=== PATIENT | female | born 1955 | race Caucasian/White ===

== ENCOUNTER → 2016-09-07 | Day surgery (SDC) | payer OTHER ==
[~2016-09-07] MED LIST: ATOR10TA15 PO; BUPIVACAINE/EPINEPHRINE 0.25% PF 30 ML VIAL ONE; CEFA2SOL IV; CYCL1TAB29 PO; DOCU1CAP39 PO; EPIN1INJ21 IV PUSH; EPIN1INJ21 SQ; KETOROLAC TROMETHAMINE 30 MG/ML (IVP) VIAL IV PUSH ONE; LACTATED RINGER'S 1000 ML INJ 1,000 ML ONE; LEVO100T5 PO; MEPERIDINE HCL 25 MG/ML VIAL ONE; METO50TA PO; MIDAZOLAM HCL 2 MG/2 ML VIAL ONE; ONDANSETRON HCL 4 MG/2 ML VIAL IV PUSH ONE; OXYC-395 PO; PROPOFOL 200 MG/20 ML AMP IV ONE; SOLU250I IV PUSH; TRAZ100T4 PO; TRAZ300T2 PO; TRAZ50TA12 PO; ceFAZolin 2 GM PREMIX 50 ML ONE
--- NOTE | 2016-09-09 21:41 | MP ---
cc: AMOR LANGSTON M.D. DATE OF SURGERY 09/07/16 PREOPERATIVE DIAGNOSIS Left elbow painful retained internal fixation and chronic posterior elbow bursitis PROCEDURE Left elbow posterior exploration with bursectomy and medial arthrotomy for hardware removal and lateral fascial incision for hardware removal. ANESTHESIA General SURGEON Noelle Langston MD, [employer] Staff ESTIMATED BLOOD LOSS 50-100 mL DRAINS None. SPECIMEN Metallic fragments, discarded. COMPLICATIONS None known. INDICATION Gay Hare is a 61-year-old female with persistent left elbow pain secondary to retained internal fixation. She also has flexion contracture of the elbow and post-traumatic arthritis of the elbow. The surgical plan is to proceed with hardware removal today. Of note, she had significant ulnar nerve problems following her surgery many years ago and some of the hardware is very close to the ulnar nerve, so complete dissection around the ulnar side of the elbow to dissect out the ulnar nerve will need to be performed. She understands that and risk of ulnar neuropathy post surgery discussed and ulnar symptomatology discussed. A detailed informed consent was obtained. She also understands that the piece of metal broken on the inside of the elbow would be left alone. PROCEDURE IN DETAIL The patient was brought to the operating room. She was placed under general anesthetic. The left upper extremity is prepped and draped in usual sterile fashion. IV antibiotics were given. Time-out was completed. We put a bump on the front of her chest and then we brought the arm across the chest and then proceeded with direct posterior approach. There was enlarged bursal tissue and we proceeded with excision of the bursal tissue and then identified the underlying hardware about the olecranon region. Then we dissected and made a flap all the way laterally until we could palpate the lateral based hardware and we also had used fluoroscopy to help guide us. Then we made a fascial incision, identified the hardware, removed this screw and this washer. Then we made a very large flap along the ulnar side and dissected down to the fascial layer and then dissected down and found the ulnar nerve proximally and then carefully dissected all the way down to the cubital tunnel. There was significant amount of scar tissue around the nerve. Once we had the nerve mobilized, then we could look on either side of the nerve for the hardware. Ultimately, it was going down to the epicondyle and then coming underneath the fascial tissue protecting the nerve and then proceeded to identify the three screws in this location and two washers. The two screws were removed fairly easily. The other screw was right up against the joint line and we were in the joint and the bone was overgrown in this area. We identified the screw by fluoroscopy and then removed the bony overgrowth and then were able to get access to the screw head and then removed this fragment of screw, but the other screw portion which was broken and directly in the middle of bone was left in place. We then irrigated out with copious amounts of irrigation. We had very good hemostasis. We had decompressed the ulnar nerve. We now saved some fascial tissue to repair this so that it was stable and it had no evidence of subluxating out of place. We had already completed the bursectomy. We now removed the hardware about the olecranon without difficulty and then took our final x-rays of the elbow demonstrating that all the hardware had been removed except for the one portion of the broken screw which was within the bone of the distal humerus. We irrigated out with copious amounts of irrigation. We had very good hemostasis. Procedure closed with absorbable suture then nylon on the skin. Xeroform applied. Sterile dressing applied. Sling applied. The patient was awoken and returned to the recovery room in stable condition. MD ISAAC Prescott/ /11:28 AM /9:26 PM
== END | disposition home or self-care (01) ==
LOC: ESDC 06:18
PROVIDERS: ATTEND Orthopaedic Surgery Sports Medicine
DX: T84.84XA Pain due to internal orthopedic prosthetic devices, implants and grafts, initial encounter (principal); M70.22 Olecranon bursitis, left elbow; M19.122 Post-traumatic osteoarthritis, left elbow
CPT/HCPCS: 01710; 20680; 24105; 73070; 76000; J0690; J1885; J2175; J2250; J2405; J3010; J7120

== ENCOUNTER 2016-10-02 12:16 | Day surgery (SDC) | payer OTHER ==
[~2016-10-02 12:16] MED LIST changes: -BUPIVACAINE/EPINEPHRINE 0.25% PF 30 ML VIAL ONE; -CEFA2SOL IV; -DOCU1CAP39 PO; -EPIN1INJ21 IV PUSH; -EPIN1INJ21 SQ; -KETOROLAC TROMETHAMINE 30 MG/ML (IVP) VIAL IV PUSH ONE; -LACTATED RINGER'S 1000 ML INJ 1,000 ML ONE; -MEPERIDINE HCL 25 MG/ML VIAL ONE; -MIDAZOLAM HCL 2 MG/2 ML VIAL ONE; -ONDANSETRON HCL 4 MG/2 ML VIAL IV PUSH ONE; -PROPOFOL 200 MG/20 ML AMP IV ONE; -SOLU250I IV PUSH; -TRAZ300T2 PO; -TRAZ50TA12 PO; -ceFAZolin 2 GM PREMIX 50 ML ONE
[2016-10-02 12:44] VITALS: BP 151/53; PULSE 86; RESP 18; TEMP 98.1; O2SAT 94
--- NOTE | 2016-10-02 16:38 | RADRPT ---
EXAM DATE/TIME: 10/02/2016 00:00 [facility] COMPARISON : No previous studies available for comparison. 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 Lesion is unruptured . PAST MEDICAL HISTORY : 1. Hypertension. 2. Hypothyroidism. 3. Arthritis. 4. Aneurysm, intracranial. PAST SURGICAL HISTORY : 1. Cholecystectomy. 2. Multisystem Orthopedic Surgery; Polytrauma 3. Diaphram Rupture repair SOCIAL HISTORY : No alcohol use. Tobacco;former. ALLERGIES: 1. Bovine MEDICATIONS: 1. Atorvastatin 10 mg q.h.s. 2. Cyclobenzaprine 10 mg prn 3. Levothyroxine 100 mcg q.d. 4. Lopressor (Metoprolol) 50 mg q.d. 5. Oxycodone 10 mg prn 6. Trazodone 100 mg q.h.s. IMAGING STUDIES: 10 mm anterior communicating artery aneurysm, possibly amenable to coil treatment however better deli neation of the neck will be needed at the time of diagnostic arteriography stent-assisted coiling may be an option if a broad neck is discovered. ASSESSMENT: Treatment of this 10 mm potentially symptomatic aneurysm is certainly indicated and should be perform ed expeditiously. The risks, benefits and alternatives were discussed at some length with the patient . Risks discussed included stroke and . PLAN: Catheter arteriography with concomitant coil embolization of the anterior communicating artery cerebr al aneurysm if technically feasible Jaime Mclain MD on October 02, 2016 at 16:33 Board Certified Radiologist. This report was verified electronically.
== END 2016-10-02 13:45 | disposition home or self-care (01) ==
LOC: HROP 12:16 → HRIP 12:27 → HROP 13:45
PROVIDERS: ATTEND Neurological Surgery
DX: I67.1 Cerebral aneurysm, nonruptured (principal)
CPT/HCPCS: 99213; G0463

== ENCOUNTER 2016-10-05 10:23 | Observation (INO) | payer OTHER ==
[~2016-10-05] VITALS: Ht 167.6 cm; Wt 93.6 kg
[~2016-10-05 10:23] MED LIST changes: +ONDANSETRON HCL 4 MG/2 ML VIAL IV PUSH ONE; +PROPOFOL 200 MG/20 ML AMP IV ONE; +SODIUM CHLORID 0.9% 500 ML BAG IV ONE
[2016-10-05] MEDS ORDERED: TRAZ300T2 PO (10:45)
[2016-10-05 10:47] VITALS: BP 177/109; PULSE 46; RESP 20; TEMP 98; O2SAT 90
[2016-10-05 11:12] LABS: AUTOMATED NEUTROPHIL # 4.4 TH/MM3 (1.8-7.7); BASOPHIL # 0.1 TH/MM3 (0-0.2); BASOPHIL % 0.9 % (0.0-2.0); EOSINOPHIL # 0.3 TH/MM3 (0-0.4); HEMO FLAGS DIFF FINAL; LYMPH % 28.5 % (9.0-44.0); LYMPHOCYTE # 2.2 TH/MM3 (1.0-4.8); MEAN CELL VOLUME 91.3 FL (80.0-100.0); MEAN CORPUSCULAR HEMOGLOBIN 29.5 PG (27.0-34.0); MEAN CORPUSCULAR HGB CONC 32.3 % (32.0-36.0); MONO % 10.3 % (0.0-8.0); NEUT % 56.3 % (16.0-70.0); PLATELET COUNT 164 TH/MM3 (150-450); RED BLOOD COUNT 4.38 MIL/MM3 (4.00-5.30); WHITE BLOOD COUNT 7.8 TH/MM3 (4.0-11.0)
[2016-10-05] MEDS ORDERED: SODIUM CHLORID 0.9% 500 ML IV PRN (11:15)
[2016-10-05] MEDS ORDERED: LACTATED RINGER'S 1000 ML IV PRN (11:15)
[2016-10-05] MEDS ORDERED: METOPROLOL TARTRATE 25 MG TAB PO PRN (11:15)
[2016-10-05] MEDS ORDERED: INSULIN HUMAN REGULAR 1,000 UNITS/10 ML VIAL SQ PRN (11:15)
[2016-10-05 11:16] LABS: APTT (PATIENT) 28.3 SEC (24.3-30.1); PROTHROMBIN TIME - PATIENT 10.8 SEC (9.8-11.6)
[2016-10-05 11:29] LABS: BICARBONATE 28.8 MEQ/L (21.0-32.0); POTASSIUM 4.5 MEQ/L (3.5-5.1)
[2016-10-05] MEDS ORDERED: NALOXONE HCL 0.4 MG/ML AMP IV PRN (12:00)
[2016-10-05] MEDS ORDERED: MAGNESIUM HYDROXIDE SUSP 30 ML CUP PO PRN (12:00)
[2016-10-05] MEDS ORDERED: ASPIRIN 325 MG TAB PO ONE (12:00)
[2016-10-05] MEDS ORDERED: CLOPIDOGREL 300 MG TAB PO ONE (12:00)
[2016-10-05] MEDS ORDERED: SODIUM CHLORIDE 0.9% FLUSH 10 ML FLUSH IV FLUSH PRN (12:00)
[2016-10-05] MEDS ORDERED: ONDANSETRON HCL 4 MG/2 ML VIAL IVP PRN (12:00)
[2016-10-05] MEDS ORDERED: RESP: ALBUTEROL 2.5 MG/3 ML NEB (SCH) ONE (14:42)
[2016-10-05] MEDS ORDERED: VERAPAMIL HCL 5 MG/2 ML VIAL ONE (14:53)
[2016-10-05] MEDS ORDERED: RESP: ALBUTEROL 2.5 MG/3 ML NEB (SCH) INH ONE (15:00)
[2016-10-05] MEDS ORDERED: ceFAZolin 2 GM PREMIX 50 ML ONE (15:33)
[2016-10-05] MEDS ORDERED: SUGAMMADEX SODIUM 200 MG/2 ML VIAL IV PUSH ONE ×4 (16:12→16:13)
--- NOTE | 2016-10-05 16:25 | EKG ---
Date Performed: 10/05/2016 Time Performed: 11:13:55 PTAGE: 61 years EKG: Sinus rhythm NORMAL ECG NO PREVIOUS TRACING DOCTOR: Shon Saldivar Interpretating Date/Time 10/05/2016 16:24:28
[2016-10-05] MEDS ORDERED: IODIXANOL 320 MG/ML 50 ML VIAL (for RAD SPEC) I-ARTERIAL ONE (17:06)
[2016-10-05] MEDS ORDERED: fentaNYL CITRATE 250 MCG/5 ML AMP ONE (17:32)
[2016-10-05] MEDS ORDERED: MIDAZOLAM HCL 2 MG/2 ML VIAL ONE (17:32)
[2016-10-05] MEDS ORDERED: ACETAMINOPHEN 325 MG TAB PO PRN (18:00)
[2016-10-05] MEDS ORDERED: *morphine SULFATE 8 MG/ML PERIprocedure ONLY ONE (18:08)
[2016-10-05] MEDS ORDERED: ENALAPRILAT 1.25 MG/ML VIAL IV PUSH PRN (18:30)
[2016-10-05] MEDS ORDERED: cloNIDine HCL 0.1 MG TAB PO PRN (18:30)
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
[2016-10-05 20:00] VITALS: BP 114/72; PULSE 82; RESP 18; TEMP 97.5; O2SAT 99
[2016-10-05] MEDS ORDERED: ATORVASTATIN 10 MG TAB PO SCH (21:00)
[2016-10-05] MEDS ORDERED: traZODone HCL 100 MG TAB PO SCH (21:00)
[2016-10-05] MEDS: oxyCODONE/ACETAMINOPHEN 5 MG/325 MG TAB PO PRN (21:21)
[2016-10-05] MEDS: SODIUM CHLOR 0.9% 1000 ML INJ 1,000 ML IV SCH ×2 (21:25→21:34)
[2016-10-05] MEDS: SODIUM CHLORIDE 0.9% FLUSH 10 ML FLUSH IV FLUSH SCH (21:34)
[2016-10-06] VITALS: BP 102/54; PULSE 69; RESP 18; TEMP 97.7; O2SAT 96
[2016-10-06] MEDS: oxyCODONE/ACETAMINOPHEN 5 MG/325 MG TAB PO PRN ×3 (03:23→13:17)
[2016-10-06 04:00] VITALS: BP 112/66; PULSE 87; RESP 16; TEMP 98.7; O2SAT 93
[2016-10-06] MEDS ORDERED: LEVOTHYROXINE SODIUM 100 MCG TAB PO SCH (06:00)
[2016-10-06 08:24] VITALS: BP 156/77; PULSE 99; RESP 18; TEMP 100.1; O2SAT 92
[2016-10-06] MEDS: SODIUM CHLORIDE 0.9% FLUSH 10 ML FLUSH IV FLUSH SCH (08:38)
[2016-10-06] MEDS: CYCLOBENZAPRINE HCL 10 MG TAB PO SCH ×2 (08:38→13:15)
[2016-10-06 08:48] LABS: AUTOMATED NEUTROPHIL # 3.9 TH/MM3 (1.8-7.7); BASOPHIL % 0.4 % (0.0-2.0); EOSINOPHIL # 0.1 TH/MM3 (0-0.4); EOSINOPHIL % 1.8 % (0.0-4.0); HEMATOCRIT 40.7 % (35.0-46.0); HEMO FLAGS DIFF FINAL; LYMPH % 8.1 % (9.0-44.0); LYMPHOCYTE # 0.4 TH/MM3 (1.0-4.8); MEAN CELL VOLUME 91.8 FL (80.0-100.0); MEAN CORPUSCULAR HEMOGLOBIN 29.6 PG (27.0-34.0); MEAN CORPUSCULAR HGB CONC 32.3 % (32.0-36.0); MONO % 5.4 % (0.0-8.0); NEUT % 84.3 % (16.0-70.0); PLATELET COUNT 103 TH/MM3 (150-450); RED BLOOD COUNT 4.43 MIL/MM3 (4.00-5.30); RED CELL DISTRIBUTION WIDTH 14.7 % (11.6-17.2); WHITE BLOOD COUNT 4.6 TH/MM3 (4.0-11.0)
[2016-10-06] MEDS ORDERED: METOPROLOL TARTRATE 50 MG TAB PO SCH (09:00)
[2016-10-06 09:08] LABS: BICARBONATE 29.4 MEQ/L (21.0-32.0); POTASSIUM 3.9 MEQ/L (3.5-5.1)
[2016-10-06 12:30] VITALS: BP 142/82; PULSE 84; RESP 18; TEMP 100; O2SAT 92
--- NOTE | 2016-10-06 14:08 | HHI.PR ---
Subjective Remarks Pt has her chronic headaches but no other complaints. states that she was referred to Dr. Lock in [place] by Dr. Barr. would like to be put back on her regular pain meds. no nausea or vomiting. Objective Vitals Vital Signs Date Time Temp Pulse Resp B/P Pulse Ox O2 Delivery O2 Flow Rate FiO2 10/06/16 12:30 100.0 84 18 142/82 92 10/06/16 09:39 18 10/06/16 08:24 100.1 99 18 156/77 92 10/06/16 04:00 98.7 87 16 112/66 93 10/06/16 00:00 97.7 69 18 102/54 96 10/05/16 20:00 97.5 82 18 114/72 99 10/05/16 18:40 80 18 151/81 97 Nasal Cannula 2 10/05/16 18:30 79 18 147/74 97 Nasal Cannula 2 10/05/16 18:15 79 18 151/84 99 Nasal Cannula 2 10/05/16 18:00 81 18 161/94 100 Nasal Cannula 2 10/05/16 17:45 80 18 129/84 99 Nasal Cannula 2 10/05/16 17:30 80 18 127/79 100 Nasal Cannula 2 10/05/16 17:23 97.5 81 18 123/75 100 Simple Mask 10 I/O 10/05/16 10/05/16 10/05/16 10/06/16 10/06/16 10/06/16 07:00 15:00 23:00 07:00 15:00 23:00 Intake Total 1200 ml Output Total 950 ml Balance 250 ml Intake IV Total 200 ml Other 1000 ml Output Urine Total 900 ml Estimated Blood Loss 50 ml # Voids 2 1 Result Diagram: 10/06/16 0745 10/06/16 0743 Objective Remarks GENERAL: This is a well-nourished, well-developed patient, in no apparent distress. Appears uncomfortable due to back pain SKIN: Dressing over the right groin, dry blood, no new blood , no hematoma palpated. CARDIOVASCULAR: Regular rate and rhythm without murmurs RESPIRATORY: Clear to auscultation. Breath sounds equal bilaterally. No wheezes GASTROINTESTINAL: Abdomen soft, non-tender, nondistended. No masses. No guarding. MUSCULOSKELETAL: Extremities without edema. moves extremities A/P Assessment and Plan Anterior communicating artery aneurysm: Patient was admitted for catheter arteriography with concomitant coiled embolization of the anterior communicating artery cerebral aneurysm. IR was not able to proceed w procedure. Apparently she also had some bleeding from the groin area for which she was observed overnight. Per pt she has been referred to another physician in [place]. Pt encouraged to use IS q1-2 hours while awake as w her chronic headaches may have atelectasis. Other than her headaches she is asymptomatic. Hypertension: continue home medication hypothyroidism: continue home med Chronic back pain: continue home meds Discharge Planning d/c home today f/u w physician in [facility] per IR recs f/u w PCP for chronic medical problem activity ad nati heart healthy diet Sariah Beckwith MD October 06, 2016 14:08
--- NOTE | 2016-10-06 14:39 | RADRPT ---
EXAM DATE/TIME: 10/05/2016 15:47 [facility] COMPARISON: No previous studies available for comparison. INDICATIONS : Patient with a history of cerebral aneurysm. MEDICAL HISTORY : Hypothyroid HTN Arthritis GERD SURGICAL HISTORY : TIA Cholecystectomy ENCOUNTER: Initial ACUITY: 7-11 months PAIN SCORE: 0/10 FLUORO TIME: 9.2 minutes IMAGE SERIES: 14 ACCESS SITE: Right Femoral artery CONTRAST: 160 cc Visipaque (iodixanol) Prophylactic antibiotics were administered with appropriate pre-procedure timing. Intra-procedural antibiotics were given as prescribed above. DEVICE(S): 1.) Right common femoral artery 6F Angio-Seal 2.) Right common femoral artery Syvek Anesthesia and pain control was provided by the Anesthesia department. PROCEDURE : 1. Ultrasound-guided puncture of the access site. 2. Angiography of the access site prior to closure device. 3. Conscious sedation with continuous EKG and Oximetry monitoring. 4. Percutaneous closure of the access site. 5. Angiography of the left internal carotid artery 6. Angiography of the right internal carotid artery The risks, benefits and alternatives to the procedure were explained and verbal and written consent w as obtained. The site was prepped in sterile fashion. Full sterile technique was used, including ca p, mask, sterile gloves and gown and a large sterile sheet. Hand hygiene and 2% chlorhexidine and/or betadine/alcohol prep was utilized per protocol for cutaneous antisepsis. The skin and subcutaneous tissues were infiltrated with local anesthetic solution. With ultrasound and fluoroscopic guidance the selected artery was punctured and a vascular sheath was placed. Angiography of the common femoral artery was performed for evaluation prior to percutaneous closure device placement. A JB2 catheter was placed in the left internal carotid artery where AP oblique and rotating digital a ngiography was performed. The catheter was next placed in the right internal carotid artery were agai n AP oblique and rotating digital angiography was performed. Examination demonstrates an aneurysm of the anterior medicated and artery with both A2 segments arising from the base of the aneurysm. The pa tient would not be a candidate for routine coiling and stent assisted coiling or clipping should be c onsidered. The procedure was terminated at this point without performing coiling. Hemostasis was obtained with the prescribed medicated closure device. Conscious sedation was perform ed with the prescribed dosages and duration as above in the presence of an independent trained radiol ogy nurse to assist in the monitoring of the patient. EKG and oximetry remained stable throughout th e procedure. CONCLUSION: 1. 9 mm anterior communicating artery aneurysm as above. Coiled was not performed Vivek Barr MD on October 06, 2016 at 14:11 Board Certified Radiologist. This report was verified electronically.
== END 2016-10-06 15:04 | disposition home or self-care (01) ==
LOC: HRAD 10:23 → HRIP 10:24 → EDSTATUS 10:30 → HRAD 17:41 → N05A 17:42
PROVIDERS: ADMIT Neurological Surgery; ATTEND Neurological Surgery
DX: I67.1 Cerebral aneurysm, nonruptured (principal); I10 Essential (primary) hypertension; E03.9 Hypothyroidism, unspecified; G89.29 Other chronic pain; M54.9 Dorsalgia, unspecified; Z79.899 Other long term (current) drug therapy; K76.9 Liver disease, unspecified
CPT/HCPCS: 36224; 76937; 80048; 85025; 85610; 85730; 93005; 94150; C1769; C1887; C1894; G0378; J0690; J2250; J2270; J2405; J3010; J7030; J7040; Q9967; J7613

== ENCOUNTER 2016-10-16 11:03 | Inpatient (IN) | payer OTHER, MEDICARE ==
[~2016-10-16] VITALS: Ht 167.6 cm; Wt 90.0 kg
[~2016-10-16 11:03] MED LIST changes: -ONDANSETRON HCL 4 MG/2 ML VIAL IV PUSH ONE; -PROPOFOL 200 MG/20 ML AMP IV ONE; -SODIUM CHLORID 0.9% 500 ML BAG IV ONE; +TRAZ300T2 PO
[2016-10-16 11:05] VITALS: BP 110/79; PULSE 104; RESP 15; TEMP 98.2; O2SAT 98
--- NOTE | 2016-10-16 11:26 | PD ---
Physical Exam Time Seen by Provider: 11:22 Narrative 61 y/o female here for wound recheck. She had some surgical hardware in the L elbow removed by Dr. Langston on September 07. She has had an opening wound, pain in the left elbow over the past few days. She was seen at Dr. Langston's office and was referred here. Vital signs reviewed. Seen at triage desk. Awaiting bed placement. Data Data Last Documented VS Vital Signs Date Time Temp Pulse Resp B/P Pulse Ox O2 Delivery O2 Flow Rate FiO2 10/16/16 11:05 98.2 104 15 110/79 98 MDM Medical Record Reviewed: Yes Supervised Visit with LYDIA: No Felipe Canales Oct 16, 2016 11:26
--- NOTE | 2016-10-16 11:37 | PD ---
HPI Chief Complaint: Skin Problem Time Seen by Provider: 11:37 Travel History International Travel<30 days: No Contact w/Intl Traveler<30days: No Traveled to known affect area: No History of Present Illness HPI 61-year-old female with history of CAD, hypertension, unruptured cerebral aneurysm, presents to emergency department today for evaluation of a wound to her left elbow. On September 07, patient had instrumentation removed from her elbow by Dr. Langston. Per report, the patient states the wound did heal but she noticed it opening last week with increased pain and redness. She went and was evaluated by LETTY Michael with Dr. Langston who scheduled her for reevaluation today. When she went to be re-evaluated today, pain had worsened, drainage had increased, along with erythema. The patient has also been having chills. Alec sent her here for admission for IV antibiotics and further evaluation of the wound. Currently the patient states the pain is an 8 out of 10, exacerbated by movement. Packing is in place. She has no reports of alterations in sensation that are acute. Patient does have chronic ulnar nerve neuropathy from previous surgery. She denies chest pain or tightness. No difficulty breathing. She has no other symptoms to report. PFSH Past Medical History Cardiovascular Problems: Yes (ENLARGED AORTA) Hypertension: Yes Musculoskeletal: No Neurologic: Yes (frequent headaches, ) Respiratory: No Immunizations Current: Yes Thyroid Disease: Yes Past Surgical History Abdominal Surgery: Yes (COLON) Cholecystectomy: Yes Hysterectomy: Yes Social History Alcohol Use: No Tobacco Use: Yes (SOCIAL) Substance Use: No Allergies-Medications (Allergen,Severity, Reaction): Coded Allergies: Bee Sting (Verified Allergy, Severe, 10/16/16) Codeine (Verified Allergy, Intermediate, headaches, 10/16/16) Boniva (Verified Adverse Reaction, Severe, gi problems, 10/16/16) Reported Meds & Prescriptions Reported Meds & Active Scripts Active Reported Trazodone (Trazodone HCl) 50 Mg Tab 50 Mg PO HS Metoprolol Tartrate 50 Mg Tab 50 Mg PO DAILY Levothyroxine (Levothyroxine Sodium) 100 Mcg Tab 100 Mcg PO DAILY Atorvastatin (Atorvastatin Calcium) 10 Mg Tab 10 Mg PO HS Flexeril (Cyclobenzaprine HCl) 10 Mg Tab 10 Mg PO TID Oxycodone (Oxycodone HCl) 10 Mg Tab 10 Mg PO Q6HR Review of Systems Except as stated in HPI: all other systems reviewed are Neg Physical Exam Narrative GENERAL: Well-nourished female patient, in no acute distress SKIN: Focused skin assessment warm/dry. There is a wound on the posterior lateral aspect of the left elbow that is 4 cm in diameter with a yellow slough and purulent drainage. Packing is in place. Erythema extends approximately 3 cm from the edge of the wound. There is no crepitus with palpation. No fluctuation. HEAD: Atraumatic. Normocephalic. EYES: Pupils equal and round. No scleral icterus. No injection or drainage. Left eye is disc conjugated to the left ENT: No nasal bleeding or discharge. Mucous membranes pink and moist. NECK: Trachea midline. No JVD. CARDIOVASCULAR: Regular rate and rhythm. No murmur appreciated. RESPIRATORY: No accessory muscle use. Clear to auscultation. Breath sounds equal bilaterally. GASTROINTESTINAL: Abdomen soft, non-tender, nondistended. Hepatic and splenic margins not palpable. MUSCULOSKELETAL: No obvious deformities. No clubbing. No cyanosis. Wound is described above. Patient is most comfortable in a semiflexed position of the left elbow. Distal pulses are palpable. Cap refills within normal limits. NEUROLOGICAL: Awake and alert. No obvious cranial nerve deficits. Motor grossly within normal limits. Normal speech. PSYCHIATRIC: Appropriate mood and affect; insight and judgment normal. Data Data Last Documented VS Vital Signs Date Time Temp Pulse Resp B/P Pulse Ox O2 Delivery O2 Flow Rate FiO2 10/16/16 11:47 97 Room Air 10/16/16 11:42 98.1 103 109/71 10/16/16 11:05 15 Orders Electrocardiogram (10/16/16 11:42) Complete Blood Count With Diff (10/16/16 11:42) Comprehensive Metabolic Panel (10/16/16 11:42) Prothrombin Time / Inr (Pt) (10/16/16 11:42) Act Partial Throm Time (Ptt) (10/16/16 11:42) Urinalysis - C+S If Indicated (10/16/16 11:42) Blood Culture (10/16/16 11:42) Blood Glucose (10/16/16 11:42) Ecg Monitoring (10/16/16 11:42) Iv Access Insert/Monitor (10/16/16 11:42) Oximetry (10/16/16 11:42) Oxygen Administration (10/16/16 11:42) Elbow, Complete (4 Vws) (10/16/16 ) Westergren Sedimentation Rate (10/16/16 11:42) C-Reactive Protein (Crp) (10/16/16 11:42) Urine Culture (10/16/16 12:25) Morphine Inj (Morphine Inj) (10/16/16 13:30) Wound Culture And Gram Stain (10/16/16 13:37) Piperacil-Tazo 3.375 Gm Premix (Zosyn 3. (10/16/16 13:45) Ct Elbow W Iv Contrast (10/16/16 ) Admit Order (Ed Use Only) (10/16/16 14:14) Consult Orthopedic (10/16/16 ) Labs Laboratory Tests Test 10/16/16 10/16/16 10/16/16 12:00 12:18 12:25 White Blood Count 7.4 TH/MM3 Red Blood Count 4.25 MIL/MM3 Hemoglobin 12.6 GM/DL Hematocrit 38.4 % Mean Corpuscular Volume 90.4 FL Mean Corpuscular Hemoglobin 29.6 PG Mean Corpuscular Hemoglobin 32.8 % Concent Red Cell Distribution Width 14.6 % Platelet Count 177 TH/MM3 Mean Platelet Volume 7.9 FL Neutrophils (%) (Auto) 63.6 % Lymphocytes (%) (Auto) 25.8 % Monocytes (%) (Auto) 8.3 % Eosinophils (%) (Auto) 1.5 % Basophils (%) (Auto) 0.8 % Neutrophils # (Auto) 4.7 TH/MM3 Lymphocytes # (Auto) 1.9 TH/MM3 Monocytes # (Auto) 0.6 TH/MM3 Eosinophils # (Auto) 0.1 TH/MM3 Basophils # (Auto) 0.1 TH/MM3 CBC Comment DIFF FINAL Differential Comment Prothrombin Time 11.5 SEC Prothromb Time International 1.0 RATIO Ratio Activated Partial 28.7 SEC Thromboplast Time Sodium Level 139 MEQ/L Potassium Level 3.9 MEQ/L Chloride Level 107 MEQ/L Carbon Dioxide Level 24.6 MEQ/L Anion Gap 7 MEQ/L Blood Urea Nitrogen 15 MG/DL Creatinine 0.90 MG/DL Estimat Glomerular Filtration 63 ML/MIN Rate Random Glucose 112 MG/DL Calcium Level 9.2 MG/DL Total Bilirubin 0.9 MG/DL Aspartate Amino Transf 18 U/L (AST/SGOT) Alanine Aminotransferase 22 U/L (ALT/SGPT) Alkaline Phosphatase 114 U/L C-Reactive Protein 0.88 MG/DL Total Protein 7.5 GM/DL Albumin 3.6 GM/DL Erythrocyte Sedimentation Rate 33 mm/hr Urine Color YELLOW Urine Turbidity CLEAR Urine pH 5.0 Urine Specific [place] 1.008 Urine Protein NEG mg/dL Urine Glucose (UA) NEG mg/dL Urine Ketones NEG mg/dL Urine Occult Blood NEG Urine Nitrite NEG Urine Bilirubin NEG Urine Urobilinogen LESS THAN 2.0 MG/DL Urine Leukocyte Esterase LARGE Urine RBC 2 /hpf Urine WBC 5 /hpf Urine Squamous Epithelial 1 /hpf Cells Urine Bacteria RARE /hpf Microscopic Urinalysis Comment CATH-CULTURE IND MDM Medical Decision Making Medical Screen Exam Complete: Yes Emergency Medical Condition: Yes Medical Record Reviewed: Yes Differential Diagnosis Cellulitis versus abscess versus infected wound versus instrumentation malfunction versus septic joint Narrative Course 61-year-old female presents to the emergency department for evaluation of left elbow wound. Lab work is initiated, blood cultures, x-ray, and wound culture are also ordered. A call has been placed to LETTY Michael for additional recommendations of care. I spoke with Alec who recommended CT imaging of the elbow with admission to medicine for IV antibiotic. Plan is discussed with the patient. She is in agreement with this plan of care. I spoke with Dr. Donis. [facility] Primary Impression: Open wound of left elbow Qualified Code: S51.002D - Open wound of left elbow, subsequent encounter Admitting Information Admitting Physician Requests: Admit Condition: Stable Loree Muñoz Oct 16, 2016 11:37
[2016-10-16] MEDS ORDERED: TRAZ50TA12 PO (11:40)
[2016-10-16 11:42] VITALS: BP 109/71; PULSE 103; TEMP 98.1; O2SAT 97
[2016-10-16 11:47] VITALS: O2SAT 97
[2016-10-16 12:08] LABS: AUTOMATED NEUTROPHIL # 4.7 TH/MM3 (1.8-7.7); BASOPHIL # 0.1 TH/MM3 (0-0.2); BASOPHIL % 0.8 % (0.0-2.0); EOSINOPHIL # 0.1 TH/MM3 (0-0.4); EOSINOPHIL % 1.5 % (0.0-4.0); HEMATOCRIT 38.4 % (35.0-46.0); HEMO FLAGS DIFF FINAL; LYMPH % 25.8 % (9.0-44.0); LYMPHOCYTE # 1.9 TH/MM3 (1.0-4.8); MEAN CELL VOLUME 90.4 FL (80.0-100.0); MEAN CORPUSCULAR HEMOGLOBIN 29.6 PG (27.0-34.0); MEAN CORPUSCULAR HGB CONC 32.8 % (32.0-36.0); MONO % 8.3 % (0.0-8.0); NEUT % 63.6 % (16.0-70.0); PLATELET COUNT 177 TH/MM3 (150-450); RED BLOOD COUNT 4.25 MIL/MM3 (4.00-5.30); RED CELL DISTRIBUTION WIDTH 14.6 % (11.6-17.2); WHITE BLOOD COUNT 7.4 TH/MM3 (4.0-11.0)
[2016-10-16 12:22] LABS: APTT (PATIENT) 28.7 SEC (24.3-30.1); PROTHROMBIN TIME - PATIENT 11.5 SEC (9.8-11.6)
[2016-10-16 12:32] LABS: ALT (GPT) 22 U/L (10-53); ANION GAP 7 MEQ/L (5-15); AST (GOT) 18 U/L (15-37); BICARBONATE 24.6 MEQ/L (21.0-32.0); BLOOD UREA NITROGEN 15 MG/DL (7-18); CHLORIDE 107 MEQ/L (98-107); GLOMERULAR FILTRATION RATE 63 ML/MIN (>89); POTASSIUM 3.9 MEQ/L (3.5-5.1); SODIUM (NA) 139 MEQ/L (136-145)
--- NOTE | 2016-10-16 12:33 | RADRPT ---
EXAM DATE/TIME: 10/16/2016 12:14 [facility] COMPARISON: No previous studies available for comparison. INDICATIONS : Left elbow pain and wound after hardware removal on and suture removal on September 29. MEDICAL HISTORY : Left elbow fracture. SURGICAL HISTORY : ORIF left elbow. Hardware removal left elbow. ENCOUNTER: [facility] ACUITY: 2 days PAIN SCORE: 10/10 LOCATION: Left posterior elbow. FINDINGS: 6 views of the left elbow. Screw fragment is identified in the lateral condyle of the distal humerus. Large osteophytes about the elbow. Focal subchondral cyst or erosion in the medial trochlea of the d istal humerus. Dorsal skin/soft tissue defect over the olecranon process. Diffuse bone demineralizati on. CONCLUSION: 1. Prominent arthritic findings of the elbow with large osteophytes. Subchondral cyst versus erosion at the medial aspect of the distal humerus. 2. Screw fragment in the distal humerus. 3. No evidence of acute fracture. Dayron Middleton MD on October 16, 2016 at 12:27 Board Certified Radiologist. This report was verified electronically.
[2016-10-16 12:34] LABS: ALKALINE PHOSPHATASE 114 U/L (45-117); TOTAL BILIRUBIN ADULT 0.9 MG/DL (0.2-1.0)
[2016-10-16 13:10] LABS: BACTERIA, URINE RARE /hpf; BLOOD, URINE NEG (NEG); GLUCOSE,URINE NEG (NEG); KETONE, URINE NEG (NEG); NITRITE,URINE NEG (NEG); SQUAMOUS EPITHELIAL CELL URINE 1 /hpf (0-5); URINE COLOR YELLOW (YELLW/STRAW)
[2016-10-16 13:14] LABS: COMMENT (UR) CATH-CULTURE IND; CULTURE IF INDICATED CATH CULTURE IND
[2016-10-16] MEDS ORDERED: MORPHINE SULFATE 4 MG/ML INJ IV PUSH ONE (13:30)
[2016-10-16] MEDS ORDERED: PIPERACIL-TAZO 3.375 GM PREMIX 50 ML IV ONE (13:45)
[2016-10-16] MEDS ORDERED: IOHEXOL 350 MG/ML 10 ML VIAL (for RAD DIAG) IV ONE (15:11)
--- NOTE | 2016-10-16 15:22 | RADRPT ---
EXAM DATE/TIME: 10/16/2016 14:51 [facility] COMPARISON: No previous studies available for comparison. INDICATIONS : Evaluate for cellulitis. Hardware removed left elbow on 09/07/2016 IV CONTRAST: 75 cc Omnipaque 350 (iohexol) IV RADIATION DOSE: 13.29 CTDIvol (mGy) MEDICAL HISTORY : Hypertension. SURGICAL HISTORY : Cholecystectomy. Hysterectomy.Lt elbow hardware removal on 09/07 ENCOUNTER: Initial ACUITY: 1 day PAIN SCALE: 5/10 LOCATION: Left elbow TECHNIQUE: Volumetric scanning of the elbow was performed. Using automated exposure control and adjustment of t he mA and/or kV according to patient size, radiation dose was kept as low as reasonably achievable to obtain optimal diagnostic quality images. FINDINGS: The examination demonstrates a piece of retained screw fragment in the lateral epicondyle. There is e xtensive soft tissue induration around the elbow with a large open wound evident along the posterior aspect of the elbow. There is some cortical irregularity along the posterior aspect of the medial epi condyles. There are advanced degenerative changes within the elbow itself. No acute fracture is seen. No focal drainable abscess is identified. CONCLUSION: 1. There is a large open wound along the posterior aspect of the left elbow. No focal drainable absce ss is seen 2. There is some cortical irregularity along the medial epicondyle however this may be chronic in eli ology. No Osteomyelitis is not excluded. 3. There is a small retained screw fragment along the lateral epicondyle. This is fully incorporated into the bone. There is no lucency or abscess around this. 4. Advanced osteoarthritis. Maycol Cool MD on October 16, 2016 at 15:16 Board Certified Radiologist. This report was verified electronically.
[2016-10-16 15:47] VITALS: BP 129/82; PULSE 90; RESP 14; O2SAT 96
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
[2016-10-16] MEDS ORDERED: VANCOMYCIN INJ 1,000 MG in SODIUM CHLOR 0.9% 250 ML INJ 250 ML IV SCH (18:00)
[2016-10-16] MEDS: CYCLOBENZAPRINE HCL 10 MG TAB PO SCH (18:00)
[2016-10-16] MEDS ORDERED: GADODIAMIDE PF 287 MG/ML 5 ML VIAL (for RAD MRI) IV ONE (18:34)
--- NOTE | 2016-10-16 19:23 | RADRPT ---
EXAM DATE/TIME: 10/16/2016 17:52 [facility] COMPARISON: CT ELBOW LEFT W CONTRAST, October 16, 2016, 14:51. ELBOW LEFT COMPLETE (4 VWS), October 16, 2016, 12:14. INDICATIONS : Osteomyelitis. CONTRAST: 18 cc Omniscan (gadodiamide) IV MEDICAL HISTORY : Hypertension. Cirrhosis. Thyroid Disease. SURGICAL HISTORY : Colon resection. Tonsillectomy. Fusion, lumbar. Left elbow pin/screw, jaw/nose sx, left femur. ENCOUNTER: Initial ACUITY: 1 week PAIN SCORE: 6/10 LOCATION: left elbow TECHNIQUE: Multiplanar, multisequence MRI examination was performed without contrast and after the intravenous a dministration of gadolinium. FINDINGS: Broad area of soft tissue ulceration seen posteriorly, overlying the olecranon. There is mild marrow edema of the olecranon and a few scattered foci of decreased T1 signal abnormality in the posterior a spect of the bone. I don't see an abscess. No osteomyelitis seen of the proximal radius. A screw is seen of the lateral condyle of the distal humerus. There are suture anchors versus screw t racks of the medial condyle. There is associated magnetic susceptibility artifact which significantly obscures the distal humerus but nothing convincing for osteomyelitis of this bone. Moderate to severe radiocarpal and humeroulnar osteoarthritis noted. There is a small joint effusion, nonspecific. CONCLUSION: 1. Broad area of the soft tissue ulceration overlying the olecranon. Cortical irregularity and subcor tical signal abnormality posteriorly of the proximal ulna typical of osteomyelitis over an estimated 18 x 29 mm area. 2. Limited evaluation of the distal humerus without convincing evidence of osteomyelitis. 3. No evidence of osteomyelitis of the proximal radius. Jaime Dockery MD on October 16, 2016 at 19:15 Board Certified Radiologist. This report was verified electronically.
[2016-10-16 20:00] VITALS: BP 130/92; PULSE 82; RESP 16; TEMP 97.4; O2SAT 98
[2016-10-16] MEDS: traZODone HCL 50 MG TAB PO SCH (21:00)
[2016-10-16] MEDS: ATORVASTATIN 10 MG TAB PO SCH (21:00)
[2016-10-17] VITALS: BP 167/79; PULSE 80; RESP 16; TEMP 97.7; O2SAT 93
[2016-10-17] MEDS ORDERED: VANCOMYCIN INJ 1,000 MG in SODIUM CHLOR 0.9% 250 ML INJ 250 ML IV SCH (00:45)
[2016-10-17] MEDS ORDERED: Vancomycin Consult Pharmacy 1 EA OTHER SCH (00:45)
[2016-10-17] MEDS ORDERED: VANCOMYCIN INJ 2,250 MG in SODIUM CHLORID 0.9% 500 ML INJ 500 ML IV ONE (01:00)
[2016-10-17] MEDS: LEVOTHYROXINE SODIUM 100 MCG TAB PO SCH (05:07)
[2016-10-17 08:00] VITALS: BP 121/80; PULSE 80; RESP 17; TEMP 96.6; O2SAT 97
[2016-10-17] MEDS: CYCLOBENZAPRINE HCL 10 MG TAB PO SCH ×3 (08:50→17:02)
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
[2016-10-17] MEDS ORDERED: METOPROLOL TARTRATE 50 MG TAB PO SCH (09:00)
[2016-10-17] MEDS: DOCUSATE SODIUM 100 MG CAP PO SCH ×2 (09:25→20:28)
--- NOTE | 2016-10-17 10:44 | PD.ORT.PN ---
Subjective Subjective Remarks s/p I&D with removal of hardware by Dr Langston in August. reports to the ER yesterday with reports of wound opening on left elbow. states large open wound with drainage. reports yellowish drainage. Was admitted and IV Abx started. reports pain in elbow Objective Vitals Vital Signs Date Time Temp Pulse Resp B/P Pulse Ox O2 Delivery O2 Flow Rate FiO2 10/17/16 08:00 96.6 80 17 121/80 97 10/17/16 00:00 97.7 80 16 167/79 93 10/16/16 20:00 97.4 82 16 130/92 98 10/16/16 15:47 90 14 129/82 96 Room Air 10/16/16 11:47 97 Room Air 10/16/16 11:47 97 Room Air 10/16/16 11:42 98.1 103 109/71 97 Room Air 10/16/16 11:05 98.2 104 15 110/79 98 I/O 10/16/16 10/16/16 10/16/16 10/17/16 10/17/16 10/17/16 07:00 15:00 23:00 07:00 15:00 23:00 Intake Total 860 ml Balance 860 ml Intake Oral 360 ml IV Total 500 ml # Voids 2 2 # Bowel Movements 0 0 Result Diagram: 10/16/16 1200 10/16/16 1200 Other Results Laboratory Tests Test 10/16/16 12:00 Prothrombin Time 11.5 SEC (9.8-11.6) Prothromb Time International 1.0 RATIO Ratio Objective Remarks LUE: Open wound over posterior elbow approx 2x3cm. mild purulent drainge. wound appears to tunnel. ROM 30-110deg. NVI distally. Assessment & Plan Assessment and Plan 1) Left Elbow open wound with infection and possible osteomyelitis -npo after MN -sign consents -plan for surgery tomorrow Michi Yap Oct 17, 2016 10:44
[2016-10-17 12:00] VITALS: BP 83/64; PULSE 58; RESP 17; TEMP 97.4; O2SAT 92
[2016-10-17] MEDS ORDERED: SODIUM CHLORID 0.9% 500 ML INJ 500 ML IV ONE (12:30)
[2016-10-17] MEDS: SODIUM CHLOR 0.9% 1000 ML INJ 1,000 ML IV SCH (12:49)
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
[2016-10-17 16:00] VITALS: BP 119/69; PULSE 63; RESP 17; TEMP 96.7; O2SAT 96
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
[2016-10-17] MEDS: MORPHINE SULFATE 4 MG/ML INJ IV PUSH PRN ×3 (17:06→21:23)
[2016-10-17 20:00] VITALS: BP 102/79; PULSE 73; RESP 20; TEMP 98.1; O2SAT 94
[2016-10-17] MEDS: ATORVASTATIN 10 MG TAB PO SCH (20:28)
[2016-10-17] MEDS: traZODone HCL 50 MG TAB PO SCH (20:28)
[2016-10-17] MEDS: VANCOMYCIN INJ 2,000 MG in SODIUM CHLORID 0.9% 500 ML INJ 500 ML IV SCH (20:28)
--- NOTE | 2016-10-17 22:09 | EKG ---
Date Performed: 10/16/2016 Time Performed: 12:36:04 PTAGE: 61 years EKG: Sinus rhythm Since previous tracing, no significant change noted NORMAL ECG PREVIOUS TRACING : 10/05/2016 11.13.55 DOCTOR: Oneyda Santos Interpretating Date/Time 10/18/2016 08:38:22
[2016-10-17 23:54] VITALS: BP 120/71; PULSE 73; RESP 18; TEMP 97.6; O2SAT 93
[2016-10-18] MEDS: MORPHINE SULFATE 4 MG/ML INJ IV PUSH PRN ×3 (02:00→20:48)
[2016-10-18] MEDS: SODIUM CHLOR 0.9% 1000 ML INJ 1,000 ML IV SCH ×2 (02:03→17:06)
[2016-10-18] MEDS ORDERED: LACTATED RINGER'S 1000 ML IV PRN (03:15)
[2016-10-18] MEDS ORDERED: INSULIN HUMAN REGULAR 1,000 UNITS/10 ML VIAL SQ PRN (03:15)
[2016-10-18] MEDS ORDERED: POVIDONE IODINE 5% (ANTISEPSIS KIT) 4 APPLICATIONS EACH NARE PRN (03:15)
[2016-10-18] MEDS ORDERED: SODIUM CHLORID 0.9% 500 ML IV PRN (03:15)
[2016-10-18] MEDS ORDERED: CHLORHEXIDINE GLUCONATE 2 % 1 PACK (2 CLOTHS) TOPICAL PRN (03:15)
[2016-10-18] MEDS: LEVOTHYROXINE SODIUM 100 MCG TAB PO SCH (05:12)
[2016-10-18] MEDS ORDERED: GENTAMICIN SULFATE 80 MG/2 ML VIAL ONE (07:17)
[2016-10-18] MEDS ORDERED: SODIUM CHLOR 0.9% 250 ML INJ 250 ML ONE (07:17)
[2016-10-18] MEDS ORDERED: VANCOMYCIN HCL 1000 MG VIAL ONE ×2 (07:17→07:46)
[2016-10-18] MEDS ORDERED: ceFAZolin 2 GM PREMIX 50 ML ONE (07:17)
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
[2016-10-18 08:00] VITALS: BP 110/64; PULSE 78; RESP 17; TEMP 97.9; O2SAT 94
[2016-10-18] MEDS ORDERED: SODIUM CHLORIDE 0.9% FLUSH 5 ML FLUSH IVF PRN (08:45)
[2016-10-18] MEDS ORDERED: ONDANSETRON HCL 4 MG/2 ML VIAL IVP PRN (08:45)
--- NOTE | 2016-10-18 08:49 | PD.OP ---
cc: James Tapia MD Operative Report Date of Surgery: Oct 18, 2016 Preoperative Diagnosis: Open left elbow wound with infection Postoperative Diagnosis: Procedure: Irrigation and debridement of left olecranon bursa, irrigation and debridement of left proximal ulna, removal of deep hardware left humerus, closure of wound 1.5 cm in length Surgeon: James Tapia [employer] Assembler(s): DESTIN Carpenter PA-C The surgical procedure was assisted by my physician assistant operator. My P.A. presence was necessary throughout this case for the manipulation and positioning of the surgical extremity. My P.A. was assisting me throughout the duration of this procedure. The skill set of a physician assistant operator was medically necessary to complete this procedure. During the surgical case the surgical instrument repair specialist was working at the back table and the physician assistant operator was directly assisting me. Operation and Findings: Gay is a 61-year-old female who had hardware removed from her elbow approximately 6 weeks ago. She subsequently developed a draining wound which opened. Informed consent was obtained preoperatively i was marked. She is brought to operating room. She was given IV sedation and general anesthesia. Timeout procedure was performed. She was placed in lateral decubitus position. Left arm was prepped with alcohol followed by Hibiclens and draped usual sterile fashion. Procedure began with debridement of the olecranon bursa. The traumatic wound was extended proximally and distally. Curettes and rongeurs were used to debride the bursa around the olecranon. Tissue was sent for culture. Next attention was turned towards debridement of the olecranon. There were some soft areas of the bone. Curettes and rongeurs were used to debride a portion of the olecranon. There was no sacha purulence noted. After thorough debridement of soft tissue and bone the wound was thoroughly irrigated with sterile saline. Next attention was turned to the distal humerus. A 1 cm incision was made directly over the lateral epicondyle. Fluoroscopy was used to localize the screw. A 3.5 mm drill bit was used to create a small window in the cortex. The screw was now visualized. Using the broken screw removal instruments the broken screw was removed without complication. Fluoroscopy confirmed removal of all hardware. Incisions were again thoroughly irrigated. A drain was placed deep. Attention was now turned towards closure. Subcutaneous tissue was reapproximated with 3- 0 PDS. Skin was closed with 3-0 nylon. Sterile dressings were applied. Patient was placed into a long-arm splint. She was awakened and transferred to recovery room in stable condition. James Tapia MD Oct 18, 2016 08:49
[2016-10-18] MEDS: SODIUM CHLORIDE 0.9% FLUSH 5 ML FLUSH IVF SCH ×2 (09:00→20:49)
[2016-10-18] MEDS ORDERED: Post-op Orders (for Pharmacy) MISC XX ONE (09:00)
[2016-10-18] MEDS ORDERED: DO NOT ADM ANY ANTICOAGULANT DRUGS PRN (09:00)
[2016-10-18] MEDS ORDERED: MIDAZOLAM HCL 2 MG/2 ML VIAL ONE (09:25)
[2016-10-18] MEDS ORDERED: fentaNYL CITRATE 250 MCG/5 ML AMP ONE (09:25)
[2016-10-18] MEDS ORDERED: *morphine SULFATE 8 MG/ML PERIprocedure ONLY ONE ×3 (09:40→11:20)
[2016-10-18] MEDS: CYCLOBENZAPRINE HCL 10 MG TAB PO SCH ×3 (11:18→15:56)
[2016-10-18] MEDS: METOPROLOL TARTRATE 25 MG TAB PO SCH (11:19)
[2016-10-18] MEDS: DOCUSATE SODIUM 100 MG CAP PO SCH ×2 (11:19→20:48)
[2016-10-18] MEDS ORDERED: MORPHINE SULFATE 30 MG/30 ML PCA ONE (11:26)
[2016-10-18 12:00] VITALS: BP 108/68; PULSE 63; RESP 18; TEMP 96.7; O2SAT 94
[2016-10-18] MEDS ORDERED: PROPOFOL 200 MG/20 ML AMP IV ONE (12:00)
[2016-10-18] MEDS ORDERED: NEOSTIGMINE 3 MG/3 ML SYR IV ONE (12:00)
[2016-10-18] MEDS ORDERED: ONDANSETRON HCL 4 MG/2 ML VIAL IV PUSH ONE (12:00)
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
--- NOTE | 2016-10-18 15:52 | RADRPT ---
EXAM DATE/TIME: 10/18/2016 08:28 [facility] COMPARISON: CT ELBOW LEFT W CONTRAST, October 16, 2016, 14:51. FLUOROSCOPY PORTABLE UP TO 1HR, October 18, 2016, 0:00. INDICATIONS : Broken screw removal left elbow. MEDICAL HISTORY : None. SURGICAL HISTORY : ORIF left elbow. Hardware removal on September 05 and suture removal September 29. ENCOUNTER: Subsequent ACUITY: 1 day PAIN SCORE: Non-responsive. LOCATION: Left elbow. FINDINGS: Limited intraoperative examination was performed. No retained foreign body is seen. There are advance d degenerative changes within the elbow. CONCLUSION: 1. The small screw fragment which was present on previous has been removed. No retained foreign body is identified. Maycol Cool MD on October 18, 2016 at 15:48 Board Certified Radiologist. This report was verified electronically.
[2016-10-18] MEDS: ceFAZolin 2 GM PREMIX 50 ML IV SCH (15:55)
[2016-10-18] MEDS: VANCOMYCIN INJ 2,000 MG in SODIUM CHLORID 0.9% 500 ML INJ 500 ML IV SCH (15:55)
[2016-10-18 16:00] VITALS: BP 114/63; PULSE 77; RESP 18; TEMP 98; O2SAT 90
[2016-10-18 20:00] VITALS: BP 113/76; PULSE 87; RESP 20; TEMP 98; O2SAT 93
[2016-10-18] MEDS: ATORVASTATIN 10 MG TAB PO SCH (20:49)
[2016-10-18] MEDS: traZODone HCL 50 MG TAB PO SCH (20:49)
[2016-10-19] VITALS (7 sets, daily range): BP systolic 99–157; BP diastolic 72–94; PULSE 68–91; RESP 16–20; TEMP 97.2–98.9; O2SAT 90–98
[2016-10-19] MEDS: ceFAZolin 2 GM PREMIX 50 ML IV SCH ×4 (00:43→23:44)
[2016-10-19] MEDS: MORPHINE SULFATE 4 MG/ML INJ IV PUSH PRN ×6 (02:05→22:43)
[2016-10-19] MEDS: SODIUM CHLOR 0.9% 1000 ML INJ 1,000 ML IV SCH ×2 (03:00→05:15)
[2016-10-19] MEDS: LEVOTHYROXINE SODIUM 100 MCG TAB PO SCH (05:12)
--- NOTE | 2016-10-19 07:42 | PD.ORT.PN ---
Subjective Subjective Remarks POD 1 s/p I&D and [facility]CO left elbow doing well. reports pain. Objective Vitals Vital Signs Date Time Temp Pulse Resp B/P Pulse Ox O2 Delivery O2 Flow Rate FiO2 10/19/16 06:37 18 10/19/16 06:12 18 10/19/16 04:00 97.2 91 20 115/72 98 10/19/16 00:00 97.7 84 20 99/76 93 10/18/16 20:53 16 10/18/16 20:00 98.0 87 20 113/76 93 10/18/16 16:00 98.0 77 18 114/63 90 10/18/16 12:00 96.7 63 18 108/68 94 10/18/16 10:15 97.8 71 23 130/79 96 Nasal Cannula 2 10/18/16 10:00 64 12 117/73 94 Nasal Cannula 2 10/18/16 09:45 56 11 120/70 97 Nasal Cannula 2 10/18/16 09:30 68 15 132/75 98 Nasal Cannula 2 10/18/16 09:15 75 12 122/64 99 Nasal Cannula 2 10/18/16 09:13 97.8 79 12 129/73 99 Nasal Cannula 2 10/18/16 08:00 97.9 78 17 110/64 94 I/O 10/18/16 10/18/16 10/18/16 10/19/16 10/19/16 10/19/16 06:59 14:59 22:59 06:59 14:59 22:59 Intake Total 1888 ml 1652 ml 480 ml 1173 ml Output Total 220 ml 925 ml 1000 ml Balance 1888 ml 1432 ml -445 ml 173 ml Intake Oral 240 ml 320 ml 480 ml 240 ml IV Total 1648 ml 332 ml 933 ml Other 1000 ml Output Urine Total 200 ml 925 ml 1000 ml Drainage Total 0 ml 0 ml Estimated Blood Loss 20 ml # Voids 2 3 # Bowel Movements 0 0 Result Diagram: 10/16/16 1200 10/18/16 0400 Objective Remarks LUE: + long arm splint. intact. NVI. +hemavac Assessment & Plan Assessment and Plan 1) Left Elbow I&D with [facility] - POD 1 -NWB -maintain splint at all times -maintain drain -will leave drain in place for 2-3 days -once drain removed, cleared for discharge. likely over weekend -f/u with Becky or [place] in 2 weeks Michi Yap Oct 19, 2016 07:42
[2016-10-19] MEDS ORDERED: PHARMACY ORDERED LAB ONE (08:45)
[2016-10-19] MEDS: SODIUM CHLORIDE 0.9% FLUSH 5 ML FLUSH IVF SCH ×2 (09:00→20:21)
[2016-10-19] MEDS: METOPROLOL TARTRATE 25 MG TAB PO SCH (09:13)
[2016-10-19] MEDS: CYCLOBENZAPRINE HCL 10 MG TAB PO SCH ×3 (09:13→17:32)
[2016-10-19] MEDS: DOCUSATE SODIUM 100 MG CAP PO SCH ×2 (09:13→20:22)
[2016-10-19] MEDS: VANCOMYCIN INJ 2,000 MG in SODIUM CHLORID 0.9% 500 ML INJ 500 ML IV SCH (10:55)
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
--- NOTE | 2016-10-19 17:57 | HHI.PR ---
Subjective Remarks Pt complains of pain and states that she is on chronic oxycodone and this doesn' t touch her pain. morphine helps but doesn't last long. denies any CP/SOB/N/V Objective Vitals Vital Signs Date Time Temp Pulse Resp B/P Pulse Ox O2 Delivery O2 Flow Rate FiO2 10/19/16 16:00 98.0 68 16 157/82 93 10/19/16 16:00 98.0 68 16 157/82 93 10/19/16 12:00 98.9 75 18 138/84 94 10/19/16 12:00 98.9 75 18 138/84 94 10/19/16 08:55 93 21 10/19/16 08:00 98.4 76 18 140/94 90 10/19/16 06:37 18 10/19/16 06:12 18 10/19/16 04:00 97.2 91 20 115/72 98 10/19/16 00:00 97.7 84 20 99/76 93 10/18/16 20:53 16 10/18/16 20:00 98.0 87 20 113/76 93 I/O 10/18/16 10/18/16 10/18/16 10/19/16 10/19/16 10/19/16 07:00 15:00 23:00 07:00 15:00 23:00 Intake Total 1888 ml 1652 ml 480 ml 1173 ml Output Total 220 ml 925 ml 1000 ml Balance 1888 ml 1432 ml -445 ml 173 ml Intake Oral 240 ml 320 ml 480 ml 240 ml IV Total 1648 ml 332 ml 933 ml Other 1000 ml Output Urine Total 200 ml 925 ml 1000 ml Drainage Total 0 ml 0 ml Estimated Blood Loss 20 ml # Voids 2 3 3 # Bowel Movements 0 0 0 Result Diagram: 10/16/16 1200 10/18/16 0400 Imaging Last Impressions Elbow X-Ray 10/18/16 0000 Signed Impressions: Service Date/Time: Tuesday, October 18, 2016 08:28 - CONCLUSION: 1. The small screw fragment which was present on previous has been removed. No retained foreign body is identified. Maycol Cool MD Upper Extremity CT 10/16/16 0000 Signed Impressions: Service Date/Time: Sunday, October 16, 2016 14:51 - CONCLUSION: 1. There is a large open wound along the posterior aspect of the left elbow. No focal drainable abscess is seen 2. There is some cortical irregularity along the medial epicondyle however this may be chronic in etiology. No Osteomyelitis is not excluded. 3. There is a small retained screw fragment along the lateral epicondyle. This is fully incorporated into the bone. There is no lucency or abscess around this. 4. Advanced osteoarthritis. Maycol Cool MD Elbow MRI 10/16/16 0000 Signed Impressions: Service Date/Time: Sunday, October 16, 2016 17:52 - CONCLUSION: 1. Broad area of the soft tissue ulceration overlying the olecranon. Cortical irregularity and subcortical signal abnormality posteriorly of the proximal ulna typical of osteomyelitis over an estimated 18 x 29 mm area. 2. Limited evaluation of the distal humerus without convincing evidence of osteomyelitis. 3. No evidence of osteomyelitis of the proximal radius. Jaime Dockery MD Objective Remarks awake and alert NAD lungs clear regular rhythm abdomen soft, nontender LUE- -w splint/dressing in place. able to wiggle her fingers, cap refill <2secs and sensation intact LE no edema Procedures 10/18- I and D left olecranon bursa, re,oval of deep hardware A/P Assessment and Plan 60-year-old female with history of trauma in the past right-handed presenting with Left elbow OM - nonhealing deep wound- With foreign body tip of the screw embedded retained -MMSSA S/P left elbow bursectomy and medial arthrotomy last 08/2016 S/P left removal of hardware and I and D of left olecranon bursa / ID following and recommend stopping vanco and continuing IV Ancef -started / ff intraop cultures Orthopedic service following.- RN has placed a call regarding pt's pain. History of AV aneurysm status post coiling neurologically stable History of hypertension continue medications- Lopressor History of hypothyroidism continue on Synthroid hyperlipidemia continue atorvastatin Insomnia continue on trazodone History of DJD chronic pain continue on oxycodone 10 mg every 4-6 when necessary and poor pain. she sees pain management. colace 100 mg po bid prn for constipation Discharge Planning awaiting final recs from ortho and ID Sariah Beckwith MD Oct 19, 2016 17:57
[2016-10-19] MEDS: ATORVASTATIN 10 MG TAB PO SCH (20:22)
[2016-10-19] MEDS: traZODone HCL 50 MG TAB PO SCH (20:22)
[2016-10-20] VITALS: BP 110/59; PULSE 76; RESP 17; TEMP 98; O2SAT 96
[2016-10-20] MEDS: MORPHINE SULFATE 4 MG/ML INJ IV PUSH PRN ×3 (02:50→12:49)
[2016-10-20] MEDS: LEVOTHYROXINE SODIUM 100 MCG TAB PO SCH (05:10)
--- NOTE | 2016-10-20 07:07 | PD.ORT.PN ---
Subjective Subjective Remarks POD 2 s/p I&D and [facility] left elbow doing well. reports pain but improving Objective Vitals Vital Signs Date Time Temp Pulse Resp B/P Pulse Ox O2 Delivery O2 Flow Rate FiO2 10/20/16 00:00 98.0 76 17 110/59 96 10/19/16 20:00 97.7 71 17 134/81 95 10/19/16 16:00 98.0 68 16 157/82 93 10/19/16 16:00 98.0 68 16 157/82 93 10/19/16 12:00 98.9 75 18 138/84 94 10/19/16 12:00 98.9 75 18 138/84 94 10/19/16 08:55 93 21 10/19/16 08:00 98.4 76 18 140/94 90 I/O 10/19/16 10/19/16 10/19/16 10/20/16 10/20/16 10/20/16 07:00 15:00 23:00 07:00 15:00 23:00 Intake Total 1173 ml 858 ml 645 ml 934 ml Output Total 1000 ml 0 ml Balance 173 ml 858 ml 645 ml 934 ml Intake Oral 240 ml 240 ml 240 ml IV Total 933 ml 858 ml 405 ml 694 ml Output Urine Total 1000 ml Drainage Total 0 ml 0 ml # Voids 3 1 2 # Bowel Movements 0 Result Diagram: 10/16/16 1200 10/18/16 0400 Objective Remarks LUE: + long arm splint. intact. NVI. +hemavac. incision clean and dry. intact. minimal drainage. Assessment & Plan Assessment and Plan 1) Left Elbow I&D with [facility] - POD 2 -NWB -drain removed at bedside today -redress with xeroform/4x4 -orthotech to place well padded long arm splint at 45deg -maintain splint at all times -ortho cleared for discharge -f/u with Becky or [facility] in 2 weeks Michi Yap Oct 20, 2016 07:07
[2016-10-20 08:00] VITALS: BP 159/97; PULSE 72; RESP 18; TEMP 96.9; O2SAT 95
[2016-10-20] MEDS: METOPROLOL TARTRATE 25 MG TAB PO SCH (08:34)
[2016-10-20] MEDS: DOCUSATE SODIUM 100 MG CAP PO SCH ×2 (08:34→21:34)
[2016-10-20] MEDS: CYCLOBENZAPRINE HCL 10 MG TAB PO SCH ×3 (08:34→17:15)
[2016-10-20] MEDS: SODIUM CHLORIDE 0.9% FLUSH 5 ML FLUSH IVF SCH ×2 (08:34→21:00)
[2016-10-20] MEDS: ceFAZolin 2 GM PREMIX 50 ML IV SCH ×2 (08:34→15:31)
[2016-10-20] MEDS: VANCOMYCIN INJ 2,000 MG in SODIUM CHLORID 0.9% 500 ML INJ 500 ML IV SCH (10:44)
[2016-10-20 12:00] VITALS: BP 131/80; PULSE 72; RESP 20; TEMP 97.3; O2SAT 96
[2016-10-20] MEDS: SODIUM CHLOR 0.9% 1000 ML INJ 1,000 ML IV SCH (12:00)
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
--- NOTE | 2016-10-20 12:06 | HHI.FF ---
Infusion Therapy Location of Infusion Therapy: Home Health Care IV Infusion Order Patient Information Patient Weight 90 kg Diagnosis: Diagnosis chronic osteo LUE Coded Allergies: Bee Sting (Verified Allergy, Severe, 10/16/16) Codeine (Verified Allergy, Intermediate, headaches, 10/16/16) Boniva (Verified Adverse Reaction, Severe, gi problems, 10/16/16) Administer Medication Cefazolin 2 grams IV q 8 hours Start Treatment: Oct 20, 2016 Stop Treatment: Dec 13, 2016 Additional Information Venous access: PICC Line Additional Instructions [x] Peripheral flush and dressing changes per protocol [x] Implanted port and central fusing line inspector: * Implanted port: 10 ml Normal Saline followed by 5 ml Heparin 100 units/ml Heparin flush after each use and monthly to maintain. [] May leave port accessed during therapy. [] May leave peripheral site accessed for duration of therapy. [x] If patient has SOB or respiratory distress, check oxygen saturation. If less than 90% or clinical signs of respiratory distress, administer oxygen at 2 L/min. via nasal cannula and notify physician. [x] Anaphylaxis/Reaction orders: * Stop infusion. * Keep IV line open with saline flush. * Notify physician. * Monitor vital signs every 15 minutes until symptoms resolve. * Check Oxygen saturation; Oxygen at 2 L/min. via nasal cannula if less than 90% or clinical signs of respiratory distress. * Administer diphenhydramine (Benadryl) 25 mg IV STAT, (unless patient has received as pre-med). May repeat once, if necessary. * Solu-Cortef 250 mg IVP over 30-60 seconds, use 100 mg vials for each dissolution. * Epinephrine (1mg/1 ml) 0.3 mg subcutaneously or IVP now with any signs of respiratory distress. * Check with physician for new additional pre-med orders if patient is re- challenged or re-treated. [x] May remove PICC line when treatment complete, after confirming with Physician. [x] If the patient is admitted to the hospital, the ED, or transferred via [facility] , complete transfer form including medication reconciliation order sheet. Laboratory Tests Weekly Labs: CBC w/diff, Creatinine, LFT's (Hepatic function test), SED Rate Additional Information send results to Dr Santillan [phone] Susanne Hamilton MD Oct 20, 2016 12:06
[2016-10-20] MEDS ORDERED: EPIN1INJ21 IV PUSH (12:09)
[2016-10-20] MEDS ORDERED: SOLU250I IV PUSH (12:09)
[2016-10-20] MEDS ORDERED: CEFA2SOL IV (12:09)
[2016-10-20] MEDS ORDERED: EPIN1INJ21 SQ (12:09)
[2016-10-20 16:00] VITALS: BP 185/86; PULSE 78; RESP 20; TEMP 98.4; O2SAT 95
[2016-10-20] MEDS ORDERED: SODIUM CHLORIDE 0.9% FLUSH 10 ML FLUSH IV FLUSH PRN (16:15)
--- NOTE | 2016-10-20 16:15 | RADRPT ---
EXAM DATE/TIME: 10/20/2016 15:13 [facility] COMPARISON: No previous studies available for comparison. INDICATIONS : Post picc placement. MEDICAL HISTORY : Hypertension. SURGICAL HISTORY : Cholecystectomy. Hysterectomy. ENCOUNTER: Initial ACUITY: 4 - 6 days PAIN SCORE: 0/10 LOCATION: Bilateral chest FINDINGS: PICC line is in good position. Lungs are clear. The heart and pulmonary vascularity are normal. The portion of the bony skeleton visualized is unremarkable. CONCLUSION: PICC line into position. Justin Cool MD FACR on October 20, 2016 at 16:13 Board Certified Radiologist. This report was verified electronically.
[2016-10-20] MEDS ORDERED: OXYC-395 PO (16:31)
[2016-10-20] MEDS ORDERED: DOCU1CAP39 PO (16:33)
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
--- NOTE | 2016-10-20 17:06 | HHI.FF ---
Infusion Therapy Location of Infusion Therapy: Home Health Care IV Infusion Order Patient Information Patient Weight 90 kg Diagnosis: Diagnosis Osteomyelitis LUE Coded Allergies: Bee Sting (Verified Allergy, Severe, 10/16/16) Codeine (Verified Allergy, Intermediate, headaches, 10/16/16) Boniva (Verified Adverse Reaction, Severe, gi problems, 10/16/16) Administer Medication Cefazolin 6 gm IV continious infusion on IV pump over 24 hrs Start Treatment: Oct 20, 2016 Stop Treatment: Dec 13, 2016 Additional Information Venous access: PICC Line Additional Instructions [x] Peripheral flush and dressing changes per protocol [x] Implanted port and central line erector: * Implanted port: 10 ml Normal Saline followed by 5 ml Heparin 100 units/ml Heparin flush after each use and monthly to maintain. [] May leave port accessed during therapy. [] May leave peripheral site accessed for duration of therapy. [x] If patient has SOB or respiratory distress, check oxygen saturation. If less than 90% or clinical signs of respiratory distress, administer oxygen at 2 L/min. via nasal cannula and notify physician. [x] Anaphylaxis/Reaction orders: * Stop infusion. * Keep IV line open with saline flush. * Notify physician. * Monitor vital signs every 15 minutes until symptoms resolve. * Check Oxygen saturation; Oxygen at 2 L/min. via nasal cannula if less than 90% or clinical signs of respiratory distress. * Administer diphenhydramine (Benadryl) 25 mg IV STAT, (unless patient has received as pre-med). May repeat once, if necessary. * Solu-Cortef 250 mg IVP over 30-60 seconds, use 100 mg vials for each dissolution. * Epinephrine (1mg/1 ml) 0.3 mg subcutaneously or IVP now with any signs of respiratory distress. * Check with physician for new additional pre-med orders if patient is re- challenged or re-treated. [x] May remove PICC line when treatment complete, after confirming with Physician. [x] If the patient is admitted to the hospital, the ED, or transferred via [facility] , complete transfer form including medication reconciliation order sheet. Laboratory Tests Weekly Labs: CBC w/diff, Creatinine, LFT's (Hepatic function test), SED Rate Additional Information send results to Dr Santillan Susanne Hamilton MD Oct 20, 2016 17:06
[2016-10-20 20:00] VITALS: BP 156/76; PULSE 75; RESP 17; TEMP 97.5; O2SAT 95
[2016-10-20] MEDS: ATORVASTATIN 10 MG TAB PO SCH (21:34)
[2016-10-20] MEDS: traZODone HCL 50 MG TAB PO SCH (21:35)
[2016-10-21] VITALS: BP 138/82; PULSE 72; RESP 17; TEMP 97.6; O2SAT 95
[2016-10-21] MEDS: ceFAZolin 2 GM PREMIX 50 ML IV SCH ×3 (00:11→14:55)
[2016-10-21] MEDS: SODIUM CHLOR 0.9% 1000 ML INJ 1,000 ML IV SCH (02:18)
[2016-10-21] MEDS: LEVOTHYROXINE SODIUM 100 MCG TAB PO SCH (04:45)
--- NOTE | 2016-10-21 07:12 | PD.ORT.PN ---
Subjective Subjective Remarks Gay is appears comfortable today. Status post left elbow irrigation and debridement with wound closure. No complaints today Objective Vitals Vital Signs Date Time Temp Pulse Resp B/P Pulse Ox O2 Delivery O2 Flow Rate FiO2 10/21/16 00:00 97.6 72 17 138/82 95 10/20/16 20:00 97.5 75 17 156/76 95 10/20/16 16:00 98.4 78 20 185/86 95 10/20/16 12:00 97.3 72 20 131/80 96 10/20/16 08:00 96.9 72 18 159/97 95 I/O 10/20/16 10/20/16 10/20/16 10/21/16 10/21/16 10/21/16 07:00 15:00 23:00 07:00 15:00 23:00 Intake Total 934 ml 790 ml 1673 ml 240 ml Output Total 0 ml Balance 934 ml 790 ml 1673 ml 240 ml Intake Oral 240 ml 300 ml 240 ml 240 ml IV Total 694 ml 490 ml 1433 ml Drainage Total 0 ml # Voids 2 3 6 1 Result Diagram: 10/16/16 1200 10/20/16 0556 Objective Remarks LUE: + long arm splint. intact. NVI left hand. Dressing clean and dry. intact. . Assessment & Plan Assessment and Plan 1) Left Elbow I&D with MARCO - POD 3 -NWB -Continue well padded long arm splint at 45deg -maintain splint at all times -ortho cleared for discharge -f/u with Becky or [facility] in 2 weeks James Pena MD Oct 21, 2016 07:12
[2016-10-21 08:00] VITALS: BP 171/83; PULSE 85; RESP 17; TEMP 98.2; O2SAT 94
[2016-10-21] MEDS: DOCUSATE SODIUM 100 MG CAP PO SCH (08:45)
[2016-10-21] MEDS: CYCLOBENZAPRINE HCL 10 MG TAB PO SCH ×2 (08:45→12:06)
[2016-10-21] MEDS: METOPROLOL TARTRATE 25 MG TAB PO SCH (08:47)
[2016-10-21] MEDS: SODIUM CHLORIDE 0.9% FLUSH 5 ML FLUSH IVF SCH (08:47)
[2016-10-21] MEDS ORDERED: SODIUM CHLORIDE 0.9% FLUSH 10 ML FLUSH IV FLUSH SCH (09:00)
[2016-10-21 12:00] VITALS: BP 119/61; PULSE 75; RESP 16; TEMP 98.4; O2SAT 96
[2016-10-21] MEDS: VANCOMYCIN INJ 2,000 MG in SODIUM CHLORID 0.9% 500 ML INJ 500 ML IV SCH (12:06)
[2016-10-21 16:00] VITALS: BP 154/83; PULSE 83; RESP 18; TEMP 99.2; O2SAT 93
[2016-10-22] MEDS ORDERED: PHARMACY ORDERED LAB ONE (10:45)
== END 2016-10-21 16:48 | disposition home health service (06) | DRG 857 ==
LOC: NEPE 11:03 → NEDA 14:17 → N07A 19:09
PROVIDERS: ADMIT Family Medicine; ATTEND Family Medicine
PROC: 0MB40ZZ Excision of Left Elbow Bursa and Ligament, Open Approach (ICD-10-PCS; 2016-10-18)
PROC: 0PPG04Z Removal of Internal Fixation Device from Left Humeral Shaft, Open Approach (ICD-10-PCS; 2016-10-18)
PROC: 0PBL0ZZ Excision of Left Ulna, Open Approach (ICD-10-PCS; principal; 2016-10-18 07:40)
DX: T81.4XXA Infection following a procedure, initial encounter (principal); T81.31XA Disruption of external operation (surgical) wound, not elsewhere classified, initial encounter; I67.1 Cerebral aneurysm, nonruptured; M86.632 Other chronic osteomyelitis, left radius and ulna; I10 Essential (primary) hypertension; Y83.1 Surgical operation with implant of artificial internal device as the cause of abnormal reaction of the patient, or of later complication, without mention of misadventure at the time of the procedure; F17.210 Nicotine dependence, cigarettes, uncomplicated; I71.4 Abdominal aortic aneurysm, without rupture; G56.22 Lesion of ulnar nerve, left upper limb; G89.29 Other chronic pain; E03.9 Hypothyroidism, unspecified; E78.5 Hyperlipidemia, unspecified; G47.00 Insomnia, unspecified
CPT/HCPCS: 36569; 71010; 73070; 73080; 73201; 73223; 76000; 76937; 80053; 80202; 81001; 82565; 85025; 85610; 85652; 85730; 86140; 86403; 87015; 87040; 87070; 87077; 87086; 87102; 87116; 87147; 87186; 87205; 87206; 93005; 94150; 96374; 96375; A9579; J0690; J1580; J1642; J2250; J2270; J2405; J2543; J2710; J3010; J3370; J7030; J7040; J7050; J7120; Q9967